=== PATIENT | female | born 2000 | race Caucasian/White ===

== ENCOUNTER 2024-12-19 21:38 | Emergency (ER) | payer OTHER ==
[~2024-12-19] VITALS: Ht 175.3 cm; Wt 137.9 kg
[~2024-12-19 21:38] MED LIST: SERTRALINE HCL50 MG PO; VENTOLIN HFA18 GM INH; VITAMIN B350 MG PO
[2024-12-19 21:45] VITALS: PULSE 93; RESP 18; TEMP 97.4
[2024-12-19 22:55] VITALS: BP 140/77; PULSE 93; RESP 18; TEMP 97.4; O2SAT 98
== END 2024-12-19 22:55 | disposition home or self-care (01) ==
LOC: FSED 21:49
DX: R05.9 Cough, unspecified (principal); J10.1 Influenza due to other identified influenza virus with other respiratory manifestations; R51.9 Headache, unspecified; R09.89 Other specified symptoms and signs involving the circulatory and respiratory systems; Z11.52 Encounter for screening for COVID-19
CPT/HCPCS: 0223U; 87400; 99282